=== PATIENT | female | born 1995 | race Caucasian/White ===

== ENCOUNTER → 2017-11-16 19:07 | Outpatient (CLI) | payer MEDICAID, SELFPAY ==
[2017-11-16 21:35] LABS: Chlamydia Trachomatis by PCR Negative (Negative); Neisserai gonorrhoeae by PCR Negative (Negative); Probe Check PASS; Sample Adequacy Control PASS; Specimen Processing Control PASS
[2017-11-21 13:47] LABS: HPV Reflexed? NOT INDICATED
== END ==
PROVIDERS: Visit Provider Obstetrics & Gynecology
DX: Z12.4 Encounter for screening for malignant neoplasm of cervix (principal); Z34.91 Encounter for supervision of normal pregnancy, unspecified, first trimester
CPT/HCPCS: 87086; 87088; 87491; 87591; 88175; G0145

== ENCOUNTER 2018-02-24 07:30 | Emergency (ER) | payer SELFPAY ==
[2018-02-24 07:32] VITALS: BP 111/58; PULSE 98; RESP 16; TEMP 36.5; O2SAT 99; BMI 21.7
--- NOTE | 2018-02-24 08:07 | ED.VISSUMM ---
- ER Visit Summary Date of Service: 02/24/18 Chief Complaint: Nausea, vomiting, diarrhea History of Present Illness: The patient is a 22 F who started with nausea, vomiting, and diarrhea patient states she has a queasy feeling in her stomach but no overt abdominal pain. She has had subjective fever. She does not remember when she last urinated. Mother had similar symptoms last week. Physical Examination: Vital signs are unremarkable. Patient's lying in bed in no acute distress. She does appear ill. Head neck examination is unremarkable. Heart is regular rate and rhythm. Lung sounds are clear. Abdomen is soft with mild diffuse tenderness to palpation. There is no guarding or rebound. Hypoactive bowel sounds are noted throughout. Test Results: CBC is unremarkable. Chemistry studies are significant only for potassium slightly low at 3.3. test is negative. Emergency Department Course and Treatment: Patient was given IV fluids, Zofran, and IM Bentyl. On repeat evaluation she is sleeping comfortably. She easily awakens. Nausea is improved. She will be given a p.o. challenge prior to discharge. We will discharge her with Zofran and Bentyl prescriptions and off work today and tomorrow. Treatment Plan: [] Disposition: Discharge Impression: Gastroenteritis This note was generated with [employer] dictation software. It may contain incorrect words, spelling, and punctuation that were not noted in review of the chart prior to signing ED Disposition - Plan for ED Patient: Chief Complaint: General Illness Referrals: NOT,DEFINED [NON-STAFF] -
[2018-02-24 08:23] LABS: Absolute Lymphocyte Count 2.33 X10^3/ul (0.83-4.51); Absolute Neutrophil Count 5.4 X10^3/uL (2.0-7.7); Basophil# 0.02 X10^3/uL; Basophil% 0.2 % (0-1); Eosinophil# 0.02 X10^3/uL; Eosinophils% 0.2 % (0-5); Hematocrit 40.1 % (37-47); Hemoglobin 13.4 g/dl (12.0-15.0); Lymphocyte # 2.33 X10^3/ul (4.0); Lymphocyte % 27.5 % (19-41); Mean Corp Hgb Conc 33.4 g/gl (32-36); Mean Corpuscular Hgb 29.4 pg (27.0-32.0); Mean Corpuscular Volume 87.9 fL (81-99); Monocyte# 0.64 X10^3/uL; Monocyte% 7.6 % (0-10); Neutrophil # 5.44 X10^3/uL (2.7-7.7); Neutrophil % 64.3 % (47-70); Platelet Count 257 K/mm3 (150-450); RBC Distribution Width CV 13.1 % (11.6-14.6); RBC Distribution Width SD 41.7 fl (35.1-43.9); Red Blood Count 4.56 M/mm3 (4.2-5.4); White Blood Count 8.5 K/mm3 (4.4-11.0)
[2018-02-24 08:25] LABS: POSITIVE COUNT NO; POSITIVE DIFFERENTIAL NO; POSITIVE MORPHOLOGY NO
[2018-02-24] MEDS: Ondansetron 4 MG/2 ML Vial IV (08:26)
[2018-02-24] MEDS: 0.9% Normal Saline 1,000 ML 1000 ML IV (08:26)
[2018-02-24] MEDS: Dicyclomine 20 MG/2 ML Vial IM (08:27)
[2018-02-24 08:29] VITALS: RESP 16
[2018-02-24 08:42] LABS: Anion Gap 8 (5-15); BUN 10 mg/dL (7-18); BUN/Creat Ratio 13.2 RATIO (10-20); Calcium,Total 8.9 mg/dL (8.5-10.1); Chloride 106 mmol/L (98-107); Creatinine, Serum 0.76 mg/dL (0.55-1.02); EST Glomerular Filtration Rate 99 mL/min (>60); Est Glom Filt Rate - Afr Amer 120 mL/min (>60); Estimated Creatinine Clearance 106.85 ml/min; Glucose 83 mg/dL (74-106); Potassium 3.3 mmol/L (3.5-5.1); Sodium Level 140 mmol/L (136-145)
[2018-02-24 08:52] LABS: Pregnancy, Serum, hCG Quali. NEGATIVE Negative (0-9 Nonpreg)
--- NOTE | 2018-02-24 09:08 | ED.DEP ---
ED Disposition - Plan for ED Patient: Disposition: Home or Assisted Living Chief Complaint: General Illness Instructions: ED Gastroenteritis Viral Prescriptions: Ondansetron [Zofran Odt] 4 mg PO Q8H PRN PRN #10 tablet PRN Reason: Nausea Dicyclomine HCl [Bentyl] 20 mg PO TIDAC #20 capsule Referrals: Saad,Carol Ann, DO [NON-STAFF] - As Needed
[2018-02-24 09:31] VITALS: BP 108/60; PULSE 70; RESP 16; O2SAT 98
== END 2018-02-24 09:31 | disposition home or self-care (01) ==
PROVIDERS: Emergency Provider Emergency Medicine
DX: K52.9 Noninfective gastroenteritis and colitis, unspecified (principal); Z72.0 Tobacco use
CPT/HCPCS: 80048; 84703; 85025; 96361; 96372; 96374; 99283; J7030; A4216; J2405

== ENCOUNTER 2018-05-18 17:10 | Emergency (ER) | payer SELFPAY ==
[2018-05-18 17:11] VITALS: BP 91/55; PULSE 92; RESP 18; TEMP 37.1; O2SAT 98; BMI 20.9
--- NOTE | 2018-05-18 17:27 | ED.VISSUMM ---
- ER Visit Summary Date of Service: 05/18/18 Chief Complaint: Right flank pain History of Present Illness: The patient is a 22 F history of prior kidney stone. No prior abdominal or urologic surgery. Patient states 2 weeks ago she had a UTI was treated with what she believes was Bactrim. States it improved. For the last 2 days now she is having right flank pain. Denies fever. Has had nausea and vomiting. Denies dysuria. Denies gross hematuria. Last menstrual period was about 6 weeks ago. States that her menstrual cycles often irregular. Does not believe that she is . Denies any abdominal pain or pelvic pain. No vaginal bleeding or discharge. Denies any trauma. Physical Examination: Young female planing of pain otherwise no acute distress. Vital signs are stable. She is afebrile. She does not look septic or toxic. H EENT exam unremarkable. Moist wheeze members. Neck nontender. Lungs there to auscultation bilaterally. Heart regular rhythm no murmur. Abdomen soft. Nontender. Nondistended. Normal bowel sounds. No signs of obstruction. Both the right upper and right lower quadrants are nontender. No hernias or masses. Extremities moving all 4. Neurovascular intact. Back right CVA tenderness. No signs of trauma. No redness or warmth. No discoloration. Left flank is nontender. Neurologically she is awake and alert with no focal motor deficits. Test Results: Chemistry is normal normal creatinine and gap. UA is positive for 25-50 white cells no nitrates. No RBCs. 1+ bacteria. A culture was sent primarily due this is probably early pyelonephritis, she is also had a recent UTI and had a positive test. Her serum test was positive. The labs quant was actually [phone]. I spoke to them specifically. Again the patient has no abdominal or pelvic pain or vaginal bleeding. Emergency Department Course and Treatment: Patient treated with IV morphine and Zofran for pain and nausea. Patient is doing much better after IV medications. I spoke with both her and her mom at length. She thinks she may have gotten when she was on her last antibiotic and thinks that her oral contraceptive may have failed. Treatment Plan: She will be started on Keflex 4 times a day. First dose given in ER. She is seen Dr. Mallory before for her prior pregnancies will follow up with her. Disposition: Discharge Impression: Acute right flank pain secondary to early pyelonephritis Newly diagnosed This note was generated with [employer] dictation software. It may contain incorrect words, spelling, and punctuation that were not noted in review of the chart prior to signing ED Disposition - Plan for ED Patient: Chief Complaint: Complaint Referrals: Care Physician,No Primary [Primary Care Provider] -
[2018-05-18 17:29] LABS: Mucous, Urine 0 SEEN /hpf (<or=2+); Red Blood Cells-Urine 0 SEEN /hpf (0-5)
[2018-05-18] MEDS: Ondansetron 4 MG/2 ML Vial IV (17:35)
[2018-05-18] MEDS: Morphine 4 MG/ML Syringe 6 MG IV (17:36)
[2018-05-18 17:41] LABS: Color, Urine Yellow (Yellow); Glucose, Dipstick Normal (Normal); Ketone-Dipstick Negative (Negative); Leukocyte Esterase-Dipstick 500 /ul (Negative); Nitrite-Dipstick Negative (Negative); Occult Blood-Urine 10 /ul (Negative); Protein-Dipstick 30 mg/dl (Negative); Urine Bilirubin Dipstick Negative (Negative); Urine Clarity Cloudy (Clear); Urine Urobilinogen Normal (Normal)
[2018-05-18 17:55] LABS: Anion Gap 6 (5-15); BUN 8 mg/dL (7-18); BUN/Creat Ratio 9.6 RATIO (10-20); Calcium,Total 8.8 mg/dL (8.5-10.1); Chloride 101 mmol/L (98-107); Creatinine, Serum 0.83 mg/dL (0.55-1.02); EST Glomerular Filtration Rate 89 mL/min (>60); Est Glom Filt Rate - Afr Amer 108 mL/min (>60); Estimated Creatinine Clearance 97.29 ml/min; Glucose 72 mg/dL (74-106); Potassium 3.7 mmol/L (3.5-5.1); Sodium Level 134 mmol/L (136-145)
[2018-05-18 18:00] LABS: Bacteria 1+ /hpf (None Seen); Squamous Epithelial Cells - UA 0-5 SEEN /hpf (5-10); White Blood Cells 25-50 SEEN /hpf (0-5)
[2018-05-18 18:15] LABS: Pregnancy, Serum, hCG Quali. POSITIVE Negative (0-9 Nonpreg)
--- NOTE | 2018-05-18 18:44 | DCINST.ED_ITS ---
ED Disposition - Plan for ED Patient: Disposition: Home or Assisted Living Chief Complaint: Complaint Instructions: ED Kidney Infec Female Prescriptions: Ondansetron [Zofran Odt] 4 mg PO Q8H PRN PRN #10 tab PRN Reason: Nausea Cephalexin [Keflex] 500 mg PO Q6 #40 cap Referrals: Bozena Mallory MD [STAFF PHYSICIAN] - As soon as possible Additional Instructions: Urinary tract infection probably early right kidney infection. Plenty of fluids. Rest. Tylenol for pain. The antibiotic Keflex 1 pill 4 times a day. A urine culture was sent that should return in the next 48 hours and will match up the antibiotic to make sure it is covering the bacteria causing her infection. Also as I told you you test was positive. He will need to follow-up with Dr. Bozena Mallory here for [employer] for further evaluation.
[2018-05-18] MEDS: Cephalexin 250 MG Capsule 500 MG PO (18:49)
[2018-05-18 18:51] VITALS: BP 97/71; PULSE 85; RESP 16; O2SAT 96
== END 2018-05-18 18:54 | disposition home or self-care (01) ==
PROVIDERS: Emergency Provider Emergency Medicine
DX: O23.01 Infections of kidney in pregnancy, first trimester (principal); Z3A.00 Weeks of gestation of pregnancy not specified; Z87.442 Personal history of urinary calculi; O99.331 Smoking (tobacco) complicating pregnancy, first trimester
CPT/HCPCS: 80048; 81001; 84703; 87086; 87088; 87186; 96374; 96375; 99284; A4216; J2405

== ENCOUNTER 2018-06-10 01:19 | Emergency (ER) | payer MEDICAID, SELFPAY ==
[2018-06-10 01:20] VITALS: BP 96/60; PULSE 72; RESP 20; TEMP 36.6; O2SAT 98; BMI 22.7
[2018-06-10] MEDS: traMADol 50 MG Tablet PO (01:58)
[2018-06-10 02:09] LABS: Basophil# 0.02 X10^3/uL; Basophil% 0.1 % (0-1); Eosinophil# 0.09 X10^3/uL; Eosinophils% 0.5 % (0-5); Hematocrit 36.3 % (37-47); Hemoglobin 11.7 g/dl (12.0-15.0); Lymphocyte % 8.2 % (19-41); Mean Corp Hgb Conc 32.2 g/gl (32-36); Mean Corpuscular Hgb 28.7 pg (27.0-32.0); Mean Corpuscular Volume 89.2 fL (81-99); Mean Platelet Vol. 11.2 fl (6.2-12.0); Monocyte# 1.56 X10^3/uL; Monocyte% 9.1 % (0-10); Neutrophil # 13.99 X10^3/uL (2.7-7.7); Platelet Count 235 K/mm3 (150-450); RBC Distribution Width CV 14.6 % (11.6-14.6); RBC Distribution Width SD 47.8 fl (35.1-43.9); Red Blood Count 4.07 M/mm3 (4.2-5.4); White Blood Count 17.1 K/mm3 (4.4-11.0)
[2018-06-10 02:10] LABS: Differential Indicated SCAN CRITERIA MET; POSITIVE COUNT NO; POSITIVE DIFFERENTIAL YES; POSITIVE MORPHOLOGY NO
--- NOTE | 2018-06-10 02:18 | ED.VIS.GEN ---
History of Present Illness Chief Complaint: Sore Throat Informant: Patient Onset: Days - 3 Context: Gradual Onset Timing: Continuous Quality: sore Location: entire throat Current Severity: Severe Maximum Severity: Severe Worsened by: swallowing Relieved by: nothing. taking tylenol. Associated Symptoms: subj fevers. no cough. Narrative: Saw her doctor less than 24 hours ago and had a negative rapid strep test, she states that the pain/soreness is gradually worsening and she is having trouble sleeping because of it. She denies any dyspnea. She states she is approximately 6-8 weeks . No abdominal pain, vaginal bleeding, no rashes. No confusion or neck stiffness. She states her neck does hurt in the back. Past Medical History - Allergies and Home Meds Allergies/Adverse Reactions: Allergies No Known Allergies Allergy (Verified 06/10/18 01:25) Primary Care Physician: Care Physician,No Primary [Primary Care Provider] - Past Medical History: None Smoking Status: Former smoker Review of Systems General: Reports: Fever, Malaise Eyes: Denies: Visual changes - left, Diplopia ENT: Reports: Sore throat. Denies: Bilateral ear pain Cardiovascular: Denies: Chest pain, Palpitations Respiratory: Denies: Dyspnea, Cough Gastrointestinal: Denies: Abdominal pain, Nausea, Vomiting Musculoskeletal: Reports: Neck pain. Denies: Swelling, Extremity Pain Skin: Denies: Rash, Wounds Neurological: Reports: Headache. Denies: Weakness, Parasthesia, Numbness Physical Exam Vital Signs/Narrative: Vital Signs Temp Pulse Resp BP Pulse Ox 06/10/18 01:20 97.9 F 72 20 H 96/60 98 Inital Vital Signs reviewed: Yes General: Well nourished, Well developed Head: Normocephalic, Atraumatic Eyes: Perrl, EOMI ENT: Moist mucous membranes, No rhinorrhea Neck: Supple, - - tender posteriorly, but no palpable abn LNs. tender bilat symmetric submandibular LAD. neck supple w/o meningismus. Cardiovascular: Regular rate, Regular rhythm, No murmurs Respiratory: No distress, CTA bilaterally, Chest nontender Extremities: Nontender, No edema Skin: Normal color, No rash, No Trauma Neurological: Alert, Oriented x3, Cranial nerves II-XII grossly intact, Normal Strength, Normal Sensation, Normal Gait Psychological: Normal affect Diagnostic/Tx/Re-eval Laboratory Tests 06/10/18 Range/Units 01:50 WBC 17.1 H (4.4-11.0) K/mm3 RBC 4.07 L (4.2-5.4) M/mm3 Hgb 11.7 L (12.0-15.0) g/dl Hct 36.3 L (37-47) % MCV 89.2 (81-99) fL MCH 28.7 (27.0-32.0) pg MCHC 32.2 (32-36) g/gl RDW 14.6 (11.6-14.6) % RDW Differential 47.8 H (35.1-43.9) fl Plt Count 235 (150-450) K/mm3 MPV 11.2 (6.2-12.0) fl Immature Gran % (Auto) 0.100 (0.0-0.9) % Neut % (Auto) 82.0 H (47-70) % Lymph % (Auto) 8.2 L (19-41) % Pine % (Auto) 9.1 (0-10) % Eos % (Auto) 0.5 (0-5) % Baso % (Auto) 0.1 (0-1) % Absolute Neuts (auto) 14.0 H (2.0-7.7) X10^3/uL Absolute Lymphs (auto) 1.40 (0.83-4.51) X10^3/ul Total Counted Not Reportable Differential Comment SCANNED Diff Path Review December foll Microbiology 06/10/18 01:50 Mucosa - Throat Group A Streptococcus Rapid Screen - Preliminary -- Negative - Medical Decision Making Patient was given Ultram and Decadron, her strep test is negative, culture is sent and pending. This was performed although she already had it performed at a different facility, given its dependence on the swab. CBC shows a predilection for neutrophils as opposed to lymphocytes which would be seen with mononucleosis. There were no atypical lymphocytes noted. Certainly she has a white count of 17 and bacterial causes are possible, but there is a fairly normal-appearing exam and she has no symptoms to suggest epiglottitis, retropharyngeal abscess, just odynophagia and erythema without any exudates, swelling of tonsils, or asymmetry. She has no trismus. I recommend close outpatient follow-up, returning if worse, she understands and is comfortable with this plan, as the Decadron may help quite a bit after it starts working. ED Disposition - Plan for ED Patient: Disposition: Home or Assisted Living Chief Complaint: Sore Throat Diagnosis: Acute pharyngitis Instructions: ED Pharyngitis Viral Report Pending Referrals: Anabel Sanchez [NON-STAFF] - 3-5 Days if not improving (or return to ER)
[2018-06-10 03:03] LABS: Differential Comment SCANNED
[2018-06-10 03:38] VITALS: BP 102/63; PULSE 84; O2SAT 96
[2018-06-12 15:13] LABS: Pathologist Review Reviewed
== END 2018-06-10 03:39 | disposition home or self-care (01) ==
PROVIDERS: Emergency Provider Emergency Medicine
DX: J02.9 Acute pharyngitis, unspecified (principal); Z87.891 Personal history of nicotine dependence
CPT/HCPCS: 36415; 85025; 87880; 99283

== ENCOUNTER 2018-06-11 16:48 | Emergency (ER) | payer MEDICAID, SELFPAY ==
[2018-06-11 16:48] VITALS: BP 91/59; PULSE 102; RESP 16; TEMP 38.1; O2SAT 96; BMI 21.6
[2018-06-11] MEDS: Acetaminophen 500 MG Tablet 1000 MG PO (17:30)
[2018-06-11] MEDS: Ondansetron 4 MG/2 ML Vial IV (17:30)
[2018-06-11] MEDS: 0.9% Normal Saline 1,000 ML 1000 ML IV (17:30)
[2018-06-11 17:52] LABS: Bacteria 0 SEEN /hpf (None Seen); Mucous, Urine 0 SEEN /hpf (<or=2+)
[2018-06-11 17:55] LABS: Absolute Lymphocyte Count 1.81 X10^3/ul (0.83-4.51); Absolute Neutrophil Count 11.6 X10^3/uL (2.0-7.7); Basophil# 0.01 X10^3/uL; Basophil% 0.1 % (0-1); Eosinophil# 0.03 X10^3/uL; Eosinophils% 0.2 % (0-5); Hematocrit 36.9 % (37-47); Hemoglobin 11.9 g/dl (12.0-15.0); Lymphocyte # 1.81 X10^3/ul (4.0); Mean Corp Hgb Conc 32.2 g/gl (32-36); Mean Corpuscular Hgb 28.7 pg (27.0-32.0); Mean Corpuscular Volume 88.9 fL (81-99); Mean Platelet Vol. 11.5 fl (6.2-12.0); Monocyte# 0.54 X10^3/uL; Monocyte% 3.9 % (0-10); Neutrophil # 11.56 X10^3/uL (2.7-7.7); Neutrophil % 82.7 % (47-70); Platelet Count 232 K/mm3 (150-450); RBC Distribution Width CV 14.7 % (11.6-14.6); Red Blood Count 4.15 M/mm3 (4.2-5.4)
[2018-06-11 18:03] LABS: Color, Urine Yellow (Yellow); Glucose, Dipstick Normal (Normal); Ketone-Dipstick Negative (Negative); Leukocyte Esterase-Dipstick 100 /ul (Negative); Nitrite-Dipstick Negative (Negative); Occult Blood-Urine 25 /ul (Negative); Protein-Dipstick 15 mg/dl (Negative); Urine Bilirubin Dipstick Negative (Negative); Urine Clarity Sl. Cloudy (Clear); Urine Urobilinogen Normal (Normal)
[2018-06-11 18:06] LABS: POSITIVE COUNT NO; POSITIVE DIFFERENTIAL NO; POSITIVE MORPHOLOGY NO
[2018-06-11 18:16] LABS: Red Blood Cells-Urine 0-5 SEEN /hpf (0-5); Squamous Epithelial Cells - UA 0-5 SEEN /hpf (5-10); White Blood Cells 10-25 SEEN /hpf (0-5)
[2018-06-11 18:30] LABS: AST(SGOT) 8 U/L (15-37); Alanine Aminotransfer ALT/SGPT 11 U/L (13-56); Albumin, Serum 3.3 g/dL (3.2-5.0); Alkaline Phosphatase 69 U/L (45-117); Anion Gap 9 (5-15); BUN 8 mg/dL (7-18); BUN/Creat Ratio 11.7 RATIO (10-20); Bilirubin, Direct 0.14 mg/dL (0.00-0.30); Calcium,Total 8.6 mg/dL (8.5-10.1); Chloride 100 mmol/L (98-107); Creatinine, Serum 0.68 mg/dL (0.55-1.02); EST Glomerular Filtration Rate 112 mL/min (>60); Est Glom Filt Rate - Afr Amer 135 mL/min (>60); Estimated Creatinine Clearance 119.42 ml/min; Glucose 74 mg/dL (74-106); Potassium 3.6 mmol/L (3.5-5.1); Protein, Total 7.3 g/dL (6.4-8.2); Sodium Level 135 mmol/L (136-145)
[2018-06-11] MEDS: 0.9% Normal Saline 1,000 ML 150 ML IV (18:30)
[2018-06-11 19:20] VITALS: BP 91/47; PULSE 82; RESP 17; O2SAT 95
[2018-06-11] MEDS: Ceftriaxone 1 GM/50 ML BAG IV (19:29)
[2018-06-11 20:02] VITALS: TEMP 37
--- NOTE | 2018-06-11 20:02 | ED.VISSUMM ---
- ER Visit Summary Date of Service: 06/11/18 Chief Complaint: Flank pain History of Present Illness: The patient is a 22 F treated for pyelonephritis in late April with Keflex. Patient has had URI symptoms since the . She has had multiple visits to healthcare providers. Today she has right flank pain and foul-smelling urine is concerned that her pyelonephritis has returned. Patient has had symptoms of fever but has not measured at home. Last dose of Tylenol was approximately 5 hours prior to evaluation. She is currently 8 weeks . Physical Examination: Vital signs include a blood pressure of 91/59, temperature 100.6, heart rate 102, respiratory rate 16, pulse ox 96% on room air. Patient is sitting upright in bed. She is nontoxic appearing. She has moist mucous membranes. There is no meningismus. Heart is regular rate and rhythm. Lungs sounds clear. Abdomen is soft with mild tenderness in the epigastric region. There is no guarding or rebound. Hypoactive bowel sounds are noted. She does have right CVA tenderness. Test Results: CBC was a white count of 14.0 which is actually improved when compared to labs from early yesterday morning. Hemoglobin is 11.9. Chemistry studies and LFTs normal. Urinalysis shows 10-25 white cells. Emergency Department Course and Treatment: Patient was given Tylenol, Zofran, and IV fluids. Urine culture has been sent and she is given a dose of IV Rocephin. I did review her urine culture from last month. She will be treated with a course of Augmentin at home. She already has nausea medicine at home if needed. Repeat temperature is currently 98.3 and heart rate is improved to 82. Treatment Plan: [] Disposition: Discharge Impression: 1. Pyelonephritis 2. First trimester This note was generated with [employer] dictation software. It may contain incorrect words, spelling, and punctuation that were not noted in review of the chart prior to signing ED Disposition - Plan for ED Patient: Chief Complaint: Flank Pain Referrals: Care Physician,No Primary [Primary Care Provider] -
--- NOTE | 2018-06-11 20:05 | ED.DEP ---
ED Disposition - Plan for ED Patient: Disposition: Home or Assisted Living Chief Complaint: Flank Pain Instructions: ED Kidney Infec Female Prescriptions: Amox/Clavulanate Tablet [Augmentin Tablet] 875 mg PO Q12H #20 tablet Additional Instructions: Follow-up with your OB in [place] as planned
[2018-06-11 20:10] VITALS: BP 101/45; PULSE 89; RESP 17; O2SAT 95
== END 2018-06-11 20:11 | disposition home or self-care (01) ==
PROVIDERS: Emergency Provider Emergency Medicine
DX: O23.01 Infections of kidney in pregnancy, first trimester (principal); Z3A.08 8 weeks gestation of pregnancy
CPT/HCPCS: 80048; 80076; 81001; 85025; 87077; 87086; 87088; 87186; 96361; 96365; 96375; 99285; J7030; A4216; J2405

== ENCOUNTER 2020-01-19 07:10 | Emergency (ER) | payer SELFPAY ==
[2020-01-19 07:11] VITALS: BP 138/77; PULSE 68; RESP 15; TEMP 36.7; O2SAT 99; BMI 24.2
--- NOTE | 2020-01-19 07:32 | ED.VIS.GEN ---
History of Present Illness Chief Complaint: Bite Narrative: Patient presenting for evaluation after dog bite. Patient reports that she was intoxicated yesterday evening, and somebody was walking a dog at that they reported was friendly. She went to give the dog treat, and it bit her in her right leg. Patient states that the person walking the dog told her that the dog's vaccines were up-to-date, but then he left the scene quickly and she has reason to believe that this likely is not true. Patient is up-to-date on her tetanus vaccine. Patient's pain and dog bite are in her right medial ankle and she states that she has some radiation of pain up her leg. Pain is moderate worse with ambulation. Patient denies any fevers. Patient denies any history of immunosuppression. Review of systems otherwise negative. Past Medical History - Allergies and Home Meds Allergies/Adverse Reactions: Allergies No Known Allergies Allergy (Verified 01/19/20 07:14) Primary Care Physician: Care Physician,No Primary [Primary Care Provider] - Prior records reviewed: Yes Past Medical History: None Smoking Status: Current every day smoker Alcohol: Occasional Drugs: None Review of Systems General: Denies: Chills, Fever, Sweats Eyes: Denies: Visual changes - bilaterally, Diplopia ENT: Denies: Rhinorrhea, Sore throat Cardiovascular: Denies: Chest pain, Palpitations Respiratory: Denies: Dyspnea, Cough, Dyspnea on exertion Gastrointestinal: Denies: Abdominal pain, Nausea, Vomiting, Diarrhea, Melena, Hematochezia Genitourinary: Denies: Dysuria, Hematuria, Frequency Musculoskeletal: Denies: Back pain, Extremity Pain Skin: Reports: Wounds. Denies: Rash Neurological: Denies: Headache, Weakness, Numbness Physical Exam Vital Signs/Narrative: Vital Signs Temp Pulse Resp BP Pulse Ox 01/19/20 07:11 98.1 F 68 15 138/77 H 99 Inital Vital Signs reviewed: Yes General: Well nourished, Well developed, No Acute Distress Head: Normocephalic, Atraumatic Eyes: Perrl, EOMI ENT: Moist mucous membranes, No rhinorrhea Neck: Supple, Nontender Cardiovascular: Regular rate, Regular rhythm, No murmurs Respiratory: No distress, CTA bilaterally, Chest nontender Abdomen: Soft, Nontender, Nondistended, Normal bowel sounds Back: Nontender, Normal Inspection Extremities: - - Examination of the patient's right lower extremity shows a laceration over the medial portion of the patient's lower leg just proximal to the medial malleolus. This measures about 2 cm in length, there is no active bleeding. There is tenderness to palpation in the area with very minimal surrounding erythema with no lymphangitic streaking. Normal PT pulses noted. Normal dorsiflexion plantarflexion eversion and inversion of the ankle. Skin: Normal color, No rash Neurological: Alert, Oriented x3, Cranial nerves II-XII grossly intact, Normal Strength, Normal Sensation Psychological: Normal affect, Normal Mood Diagnostic/Tx/Re-eval - Medical Decision Making Patient presented secondary to a dog bite. There does not appear to be evidence that this is currently severely infected. It was anesthetized, irrigated, and loosely approximated as noted in the procedure note. Patient tolerated this well. Patient will be prophylactically placed on Augmentin. She was recommended to follow-up with primary care in 3 days for a wound check in 7 days for suture removal. She was educated on signs and symptoms for which to return. Patient was discharged in stable condition. Patient does not have a primary care physician and was provided Dr. Vasquez from the follow-up list Procedures - Lacerations No standard instances Depth: Sub Q Shape: Linear Prep: Zachariah-Ken Laceration repair: Irrigated - Copiously irrigated and scrubbed with AlyseClerohan, Lidocaine, Wound explored - No evidence of foreign material, no evidence of violation of neurovascular structures Number of Sutures/[place]: 1 Suture Information: Ethilon, Simple, 4-0 Comment: Wound was loosely approximated with a single 4 oh simple interrupted nylon suture ED Disposition - Plan for ED Patient: Disposition: Home or Assisted Living Diagnosis: Dog bite of ankle, Laceration of right ankle Instructions: ED BITE Dog, ED Laceration All Closures Prescriptions: Amox/Clavulanate Tablet [Augmentin Tablet] 875 mg PO Q12H #14 tab Prescription Printed Referrals: Isabel Vasquez MD [STAFF PHYSICIAN] - (Follow-up with Dr. Vasquez in 3 days for wound check, and 7 days for suture removal)
[2020-01-19 07:56] VITALS: BP 129/66; PULSE 74; RESP 16; O2SAT 98
== END 2020-01-19 08:10 | disposition home or self-care (01) ==
PROVIDERS: Emergency Provider Emergency Medicine
DX: S91.011A Laceration without foreign body, right ankle, initial encounter (principal); S91.059 Open bite, unspecified ankle; W54.0XXA Bitten by dog, initial encounter; F17.200 Nicotine dependence, unspecified, uncomplicated
CPT/HCPCS: 12001; 99284

== ENCOUNTER 2021-10-03 12:53 | Inpatient (IN) | payer MEDICAID, SELFPAY ==
[2021-10-03] VITALS (23 sets, daily range): BP systolic 88–118; BP diastolic 51–78; PULSE 60–85; RESP 16; TEMP 36.6–36.8; O2SAT 88–100; BMI 18.8
[2021-10-03] MEDS: Oxytocin 30 units/NS 500 ml 30 UNITS/500 ML IV.SOLN 334 UNITS IV (13:03)
--- NOTE | 2021-10-03 13:18 | HP.PCM.OB_ITS ---
HPI - General General Date of Admission: 10/03/21 HPI Narrative NOEL PEACOCK, is a 26 F who presents by squad in active labor with vaginal bleeding and precipitously delivered. Patient has only had one visit in [place] at 32 weeks of . Patient had no drug use throughout the with cocaine. Patient delivered with clear fluid with artificial rupture of membranes vaginal delivery without complication. She appears to be 36 to 37 weeks and has a history of a term vaginal delivery previously at [place]. PFSH [facility] Medical History (Updated 10/03/21 @ 13:[address] Bozena Mallory MD) Depression with anxiety Home Medications amoxicillin-pot clavulanate 875 mg PO Q12H #14 tab 01/19/20 [Rx Last Taken Unknown] naproxen 500 mg PO BID #14 tab 01/19/20 [Rx Last Taken Unknown] Allergy/AdvReac Type Severity Reaction Status Date / Time No Known Allergies Allergy Verified 01/19/20 07:14 Family History (Updated 11/16/17 @ 16:42 by Sachi Farris) Father Diabetes Grandmother Diabetes Surgical History (Updated 06/10/18 @ 03:[address] Jose Alberto Sky MD) S/P tonsillectomy s/p ulcers removed from tonsils Social History (Updated 11/20/17 @ 22:[address] Bozena Mallory MD) Smoking Status: Current every day smoker alcohol intake: former substance use type: former substance user Date of last use: karissa and coke caffeine: Yes what type of physical activity do you participate in: none seatbelt use: sometimes do you feel safe at home: Yes additional social history: Qacrvk-Lfxhphtjw-Igqbts-Works in [employer] Patient is currently unemployed History 4 Elective abortions 2 Hx Para 2 Spontaneous abortions Hx # Term Pregnancies 2 Ectopic pregnancies Hx # Pregnancies Multiple births # of living children 2 Past Pregnancies Del. Date Name GA/Weeks Outcome Route Bth Weight Infant Gen Labor Lgth Anesthesia Del Locatn Provider FOB Unknown elective Unknown elective - November 2017 NST FHR Rate Baby A Baseline: 140 ROS Constitutional Constitutional: Reports systems reviewed and no addt'l complaints, except as documented ENT HEENT: Reports systems reviewed and no addt'l complaints, except as documented Cardiovascular Cardiovascular: Reports systems reviewed and no addt'l complaints, except as documented Respiratory/Chest Respiratory/Chest: Reports systems reviewed and no addt'l complaints, except as documented Gastrointestinal Gastrointestinal: Reports systems reviewed and no addt'l complaints, except as documented and nausea; Denies abdominal pain Genitourinary Genitourinary: Reports systems reviewed and no addt'l complaints, except as documented, contractions Details: present and frequency (regular ) and movement Details: present Musculoskeletal Musculoskeletal: Reports systems reviewed and no addt'l complaints, except as documented Integumentary Integumentary: Reports as per HPI Neurologic Neurologic: Reports systems reviewed and no addt'l complaints, except as documented Endocrine Endocrinology: Reports systems reviewed and no addt'l complaints, except as documented Physical Exam Const alert, oriented x3 and healthy appearing Constitutional Narrative: uncomfortable with contractions HEENT normocephalic and moist oral mucous membranes Head and Scalp: atraumatic Neck full ROM, no lymphadenopathy, supple and thyroid normal General: trachea midline Thyroid: thyroid normal Lymph Lymphatic: no lymphadenopathy noted Chest inspection of chest normal Resp normal respiratory effort Cardio regular rate GI normal to inspection, nondistended, normoactive bowel sounds, soft to palpation and non-tender Inspection: gravid external exam normal Bimanual Exam - Vag & Uterus: uterus non-tender Manual OB Exam: estimated gestational size appropriate, presentation cephalic, dilated, effaced and station Extremity Extremity Narrative: multiple self inflicted excoriations arms and legs General Extremity: Negative for edema Neuro deep tendon reflexes 2+ bilaterally Motor Exam: strength 5/5 throughout and clonus absent Psych mental status grossly normal Labs Labs Labs: Hct 36.9 % (37-47) L Hgb 11.9 g/dl (12.0-15.0) L C.trachomatis DNA (PCR) Negative (Negative) Assessment & Plan (1) No care in current : (2) Precipitous delivery: (3) Vaginal delivery: COMMENT: SM 37 no care girl (4) History of illicit drug use: PLAN: patient presented precipitous delivery no complications
--- NOTE | 2021-10-03 13:30 | OP.PCM_ITS ---
Assessment & Plan (1) Vaginal delivery: COMMENT: SM 37 no care girl (2) Precipitous delivery: (3) No care in current : Vaginal Delivery Operative Information Date of Procedure: 10/03/21 Pre-Operative Diagnosis: IAL Post-Operative Diagnosis: same Surgery / Procedure Performed: Spontaneous Vaginal Delivery Type of Anesthesia: None Special Medications: none Estimated Blood Loss: 200 Fluids Replaced: crystalloid Findings Description of Procedure: Patient began pushing and delivered the head in the ELIECER presentation. The head was delivered atraumatically . The anterior and posterior shoulders delivered without complication followed by the rest of the and the was placed on the maternal abdomen. Delayed cord clamping was employed for approximately 60 seconds. Cord was clamped and cut and gentle traction was applied to the cord and the placenta delivered spontaneously immediately following it was noted to be intact with three-vessel cord. The perineum and vagina were inspected and noted to have no laceration. EBL was 200. Patient and infant tolerated delivery well. Presentation: ELIECER Amniotic Membrane Rupture Type: Artificial Amniotic Fluid Description: Clear Placental Delivery Description: Spontaneous Placenta Disposition: [facility] Cord Vessel Description: 3 Vessels Cord Entanglement: None Delayed Cord Clamping: Yes Post Vaginal Delivery Medications Given After Delivery: IV Pitocin Episiotomy Description: None Laceration: None Complication Complications: None Procedures Urinary/Genital [id number]: [id number] Vaginal Delivery+ Care([facility])
--- NOTE | 2021-10-03 13:31 | PCM.DC ---
Discharge Instructions Diet Discharge Diet: No restrictions Activity Discharge Activity: Return to Normal Activity, May Not Drive (while taking narcotic pain medications.) and May Shower May resume sexual activity in: 4-6 weeks Dressing / Incision Call your doctor if your incision/area has: Continuous Slow Oozing, Sudden Increased Bleeding, Increased Pain/ Swelling, Increased Redness and Foul Smelling Discharge Follow Up Care Please Follow Up With: Bozena Mallory MD When: Call [phone] to make an appointment with your doctor in 6 weeks. If you had elevated blood pressure or 4th degree laceration, you will need to be seen in 2 weeks. Test Results: Test results from this visit will be discussed in further detail at your follow-up appointment, if applicable. Discharge Plan Admission Admit Date/Time: 10/03/21 12:53 Primary Reason for Your Visit: vaginal delivery Attending Provider: Bozena Mallory Primary Care Provider: Care Physician,Juju Primary Discharge Orders/Prescriptions Prescriptions: No Action amoxicillin-pot clavulanate 875 MG tablet 875 mg PO Q12H Qty: 14 RF: 0 naproxen 500 MG tablet 500 mg PO BID Qty: 14 RF: 0 Referrals / Follow Up: Care Physician,No Primary [Primary Care Provider] - Disposition Disposition (needs filled in before D/C Order can be placed): Home, Self Care
[2021-10-03 13:44] LABS: Red Blood Cells-Urine 0 SEEN /hpf (0-5)
[2021-10-03 13:47] LABS: Absolute Lymphocyte Count 1.75 X10^3/uL (0.83-4.51); Absolute Neutrophil Count 8.3 X10^3/uL (2.0-7.7); Basophil# 0.05 X10^3/uL; Basophil% 0.4 % (0-1); Eosinophil# 0.04 X10^3/uL; Eosinophils% 0.4 % (0-5); Hematocrit 37.5 % (37-47); Hemoglobin 12.6 g/dL (12.0-15.0); Lymphocyte # 1.75 X10^3/ul (0.83-4.51); Lymphocyte % 15.7 % (19-41); Mean Corp Hgb Conc 33.6 g/dL (32-36); Mean Corpuscular Volume 89.3 fL (81-99); Mean Platelet Vol. 12.2 fl (6.2-12.0); Monocyte# 0.87 X10^3/uL; Monocyte% 7.8 % (0-10); NRBC Flagged by Analyzer 0 % (0-5); Neutrophil # 8.25 X10^3/uL (2.7-7.7); Neutrophil % 74.3 % (47-70); Platelet Count 239 K/mm3 (150-450); RBC Distribution Width CV 13.4 % (11.6-14.6); RBC Distribution Width SD 43.6 fl (35.1-43.9); White Blood Count 11.1 K/mm3 (4.4-11.0)
[2021-10-03 13:48] LABS: Color, Urine Yellow (Yellow); Glucose, Dipstick Normal (Normal); Ketone-Dipstick 5 mg/dl (Negative); Leukocyte Esterase-Dipstick 25 /ul (Negative); Nitrite-Dipstick Negative (Negative); Occult Blood-Urine Negative /ul (Negative); Protein-Dipstick 15 mg/dl (Negative); Specific Gravity, Urine 1.015 (1.002-1.030); Urine Clarity Sl. Cloudy (Clear); Urine Urobilinogen 4 mg/dl (Normal)
[2021-10-03 13:50] LABS: Urine Bilirubin Dipstick 1 mg/dL (Negative)
[2021-10-03 13:58] LABS: Squamous Epithelial Cells - UA 0-5 SEEN /hpf (5-10); White Blood Cells 0-5 SEEN /hpf (0-5)
[2021-10-03 13:59] LABS: Bacteria RARE /hpf (None Seen); Mucous, Urine RARE /hpf (<or=2+)
[2021-10-03] MEDS: 0.9% Saline Lock 10 ML Syringe IV ×2 (14:11→23:01)
[2021-10-03] MEDS: Ondansetron 4 MG/2 ML Vial IV ×2 (14:11→23:01)
[2021-10-03 14:16] LABS: Amphetamine Urine VISTA NEGATIVE (<1000 ng/mL); Barbiturate Urine VISTA NEGATIVE (< 200 ng/mL); Benzodiazepine Urine VISTA NEGATIVE (< 200 ng/mL); Cocaine Urine VISTA POSITIVE (< 300 ng/mL); Ecstacy Urine VISTA NEGATIVE (< 500 ng/mL); Methadone Urine VISTA NEGATIVE (< 300 ng/mL); PCP Urine VISTA NEGATIVE (< 25 ng/mL); THC Urine VISTA NEGATIVE (< 50 ng/mL); Vista UDS pH Range 7
[2021-10-03] MEDS: Methylergonovine 0.2 MG/ML Ampul IM (14:20)
[2021-10-03] MEDS: Naproxen 500 MG Tablet PO ×2 (14:49→23:01)
[2021-10-03 14:54] LABS: Syphilis Antibodies Non-reactive
[2021-10-03 15:03] LABS: HIV - WCH Non-Reactive (Nonreactive)
[2021-10-03 15:31] LABS: Hepatitis B Surface Antigen Non-Reactive (Nonreactive); Hepatitis C Antibody Non-Reactive (Nonreactive); Rubella IgG Reactive (Nonreactive)
[2021-10-03 15:31] LABS: Group B Strep DNA By PCR POSITIVE (Negative); Probe Check PASS
[2021-10-03 15:36] LABS: Chlamydia Trachomatis by PCR Negative (Negative); Neisserai gonorrhoeae by PCR Negative (Negative); Probe Check PASS; Sample Adequacy Control PASS; Specimen Processing Control PASS
[2021-10-04] VITALS (11 sets, daily range): BP systolic 96–103; BP diastolic 56–67; PULSE 64–84; RESP 14–18; TEMP 36.2–36.6; O2SAT 97
[2021-10-04] MEDS: Naproxen 500 MG Tablet PO ×2 (07:42→17:28)
--- NOTE | 2021-10-04 07:48 | PCM.PN.OB ---
Subjective Subjective Patient doing well without complaints. Tolerating PO. Ambulating and voiding without difficulty. feeding well. Denies chest pain, shortness of breath, calf pain/swelling, fevers, chills, lightheadedness. Objective Data Objective Data Vital Signs: Vital Signs Temp Pulse Resp BP Pulse Ox 97.9 F 77 16 101/56 L 97 10/04/21 07:44 10/04/21 07:43 10/04/21 04:24 10/04/21 07:43 10/04/21 07:43 Oxygen Delivery Method Room Air Weight: 120 lb Body Mass Index (BMI) 18.8 Intake & Output: Intake and Output for Last 24 Hours 10/02/21 10/03/21 10/04/21 23:59 23:59 23:59 Intake Total 500 / 500 Output Total 600 / 600 Balance -100 / -100 Lab / Micro Data Result Diagrams: 10/03/21 13:10 Labs: Laboratory Results - last 24 hr 10/03/21 13:10: WBC 11.1 H, RBC 4.20, Hgb 12.6, Hct 37.5, MCV 89.3, MCH 30.0, MCHC 33.6, RDW Std Deviation 43.6, RDW Coeff of Danny 13.4, Plt Count 239, MPV 12.2 H, Immature Gran % (Auto) 1.400 H, Neut % (Auto) 74.3 H, Lymph % (Auto) 15.7 L, [place] % (Auto) 7.8, Eos % (Auto) 0.4, Baso % (Auto) 0.4, Absolute Neuts (auto) 8.3 H, Absolute Lymphs (auto) 1.75, Nucleated RBC % 0 10/03/21 13:10: Urine Color Yellow, Urine Clarity Sl. Cloudy, Urine pH 7.0, Ur Specific [place] 1.015, Urine Protein 15 H, Urine Glucose (UA) Normal, Urine Ketones 5 H, Urine Occult Blood Negative, Urine Nitrite Negative, Urine Bilirubin 1 H, Urine Urobilinogen 4 H, Ur Leukocyte Esterase 25 H, Urine RBC 0 SEEN, Urine WBC 0-5 SEEN, Ur Squamous Epith Cells 0-5 SEEN, Urine Bacteria RARE, Urine Mucus RARE 10/03/21 13:10: Syphilis Total Ab Non-reactive 10/03/21 13:10: Chlam trachomat DNA PCR Negative, N.gonorrhoeae DNA (PCR) Negative, Group B Strep DNA POSITIVE H, Specimen Comment Not Reportable 10/03/21 13:10: Blood Type A POSITIVE, Antibody Screen NEGATIVE 10/03/21 13:10: Urine Opiates Screen NEGATIVE, Urine Methadone Screen NEGATIVE, Ur Barbiturates Screen NEGATIVE, Ur Phencyclidine Scrn NEGATIVE, Ur Amphetamines Screen NEGATIVE, U Methamphetamin-MDMA NEGATIVE, U Benzodiazepines Scrn NEGATIVE, Urine Cocaine Screen POSITIVE H, U Cannabinoids Screen NEGATIVE, Ur Drug Screen Comment 10/03/21 13:10: HIV 1&2 Antibody Non-Reactive 10/03/21 14:33: Hep Bs Antigen Non-Reactive, Hepatitis C Antibody Non-Reactive, Rubella IgG Antibody Reactive Micro: Microbiology 10/03/21 13:10 Nasal Secretion SARS-CoV-2 Antigen (Rapid) - Final ROS Constitutional Constitutional: Reports systems reviewed and no addt'l complaints, except as documented Cardiovascular Cardiovascular: Reports systems reviewed and no addt'l complaints, except as documented Respiratory/Chest Respiratory/Chest: Reports systems reviewed and no addt'l complaints, except as documented Gastrointestinal Gastrointestinal: Reports systems reviewed and no addt'l complaints, except as documented Physical Exam Const alert, oriented x3 and no apparent distress HEENT Head and Scalp: atraumatic Resp normal respiratory effort GI soft to palpation and non-tender Bimanual Exam - Vag & Uterus: uterus non-tender Uterus Palpation: uterus fundus firm (below Umbilicus) Assessment & Plan (1) Vaginal delivery: COMMENT: SM 37 no care girl (2) Precipitous delivery: PLAN: s/p PPD # 1 1. routine post delivery care 2. social work for drug use and no care
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
--- NOTE | 2021-10-04 17:00 | CASEMGMT ---
Social Work Labor and Delivery Unit Call made to [facility] ([facility]) at approximately 1500, and spoke with intake dry paste supervisor Yennifer Olivares, . Referral given for substance exposed in utero, positive drugs screens at time of delivery, lack of care, non-custody of older child, and complex social situation. Case will be screened for investigation. Let Yennifer know that baby to be in hospital a minimum of 72 hours with earliest discharge Monday. Asked Yennifer to have assigned worker call this instructional writer to touch base regarding regarding referral and plan. Plan: Social work to follow and assist. Collaborate with children services for safe plan for baby. -ODALYS Gonzalez, HEAT PUMP INSTALLER
[2021-10-04] MEDS: Acetaminophen 500 MG Tablet 1000 MG PO (22:04)
[2021-10-05 01:16] VITALS: BP 104/59; PULSE 73; RESP 18; TEMP 36.6
[2021-10-05] MEDS: Naproxen 500 MG Tablet PO ×2 (01:21→12:11)
[2021-10-05] MEDS: Senna/Docusate Sodium 1 Tablet PO (06:17)
[2021-10-05] MEDS: Acetaminophen 500 MG Tablet 1000 MG PO ×2 (06:17→16:51)
--- NOTE | 2021-10-05 07:52 | PCM.PN.OB ---
Subjective Subjective Patient doing well without complaints although sleepy and would not open eyes during conversation. Tolerating PO. Ambulating and voiding without difficulty. Feeding well. Denies chest pain, shortness of breath, calf pain/swelling, fevers, chills, lightheadedness. Objective Data Objective Data Vital Signs: Vital Signs Temp Pulse Resp BP Pulse Ox 97.8 F 73 18 104/59 L 97 10/05/21 01:16 10/05/21 01:16 10/05/21 01:16 10/05/21 01:16 10/04/21 07:43 Oxygen Delivery Method Room Air Weight: 120 lb Body Mass Index (BMI) 18.8 Intake & Output: Intake and Output for Last 24 Hours 10/03/21 10/04/21 10/05/21 23:59 23:59 23:59 Intake Total 500 / 500 Output Total 600 / 600 Balance -100 / -100 Lab / Micro Data Result Diagrams: 10/03/21 13:10 Micro: Microbiology 10/03/21 13:10 Nasal Secretion SARS-CoV-2 Antigen (Rapid) - Final Physical Exam Const Orientation / Consciousness: other Other Details: answers questions appropriately, would not open eyes during conversation HEENT normocephalic Neck full ROM Resp normal respiratory effort GI soft to palpation GI Narrative: FF below U Assessment & Plan (1) Vaginal delivery: COMMENT: SWAPNIL 37 no care girl (2) Precipitous delivery: (3) No care in current : QUALIFIERS: Trimester: third trimester Qualified Code(s): O09.33 - Supervision of with insufficient care, third trimester (4) History of illicit drug use: PLAN: s/p PPD # 2 1. routine post delivery care 2. bottle feeding- support given 3. rh positive 4. rubella immune 5. SW evaluated and referrels made/see note 6. hotel status today to further monitor .
[2021-10-05 08:10] VITALS: BP 116/67; PULSE 71; PULSE 72; RESP 18; TEMP 36.9; O2SAT 96
[2021-10-05 13:53] VITALS: BP 104/56; PULSE 90; RESP 16; TEMP 36.4
[2021-10-05] MEDS: Ondansetron 8 MG Tablet PO (16:50)
--- NOTE | 2021-10-05 17:17 | NURSING ---
Mom active in baby care - feeding and changing diapers.
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
--- NOTE | 2021-10-08 14:50 | CASEMGMT ---
Social Work Labor and Delivery Unit Arranged mental health follow-up for the patient/mother of baby, as per verbal consent, at the counseling center for October 20 at 9:30 AM with Patience Felisha. Typed information for the MOB. Refer to infant's chart, which is directly linked to this delivery record for further details about social work interventions with his family since MOB's discharge at the patient. -ODALYS Gonzalez, DENTAL AIDE. *This note was generated with [employer] software. It may contain incorrect words, spelling, and punctuation that were not noted in review of the chart prior to signing*
== END 2021-10-05 18:45 | disposition home or self-care (01) | DRG 807 ==
PROVIDERS: Admitting Provider Obstetrics & Gynecology; Visit Provider Obstetrics & Gynecology
DX: O62.3 Precipitate labor (principal); Z37.0 Single live birth; O26.23 Pregnancy care for patient with recurrent pregnancy loss, third trimester; F17.210 Nicotine dependence, cigarettes, uncomplicated; Z56.0 Unemployment, unspecified; Z3A.37 37 weeks gestation of pregnancy; O99.334 Smoking (tobacco) complicating childbirth
CPT/HCPCS: 59050; 80307; 81001; 85025; 86703; 86762; 86780; 86803; 86850; 86900; 86901; 87340; 87426; 87491; 87591; 87653; 99218; A4216; G0378; J2405

== ENCOUNTER 2023-05-31 13:14 | Emergency (ER) | payer SELFPAY ==
[2023-05-31 13:15] VITALS: BP 106/64; PULSE 72; RESP 16; TEMP 35.7; O2SAT 96; BMI 24.3
--- NOTE | 2023-05-31 13:43 | EDS_ITS ---
HPI History of Present Illness HPI Narrative: Patient presents with right wrist pain that has been getting worse over the past several days. Patient states she started a new job recently. Patient states she does a lot of lifting. Patient states that her pain is worse with certain movements and with lifting. Patient describes her pain as sharp. Patient states that approximately 1 year ago she injured her wrist and a blood bank specialist told her that she may have a fracture. Patient states she never got it evaluated. Patient denies any new trauma or injury. Patient denies any paresthesias or weakness. Chief Complaint: Upper Extremity Injury Informant: patient Onset/Context/Timing Onset: Days Context: Gradual Onset Timing: Continuous Quality of Pain: Sharp Location: Right wrist Worsened by: Movement Relieved by: Rest Associated Symptoms Associated Symptoms: Negative for Parasthesia, Weakness or Loss of Funtion PFSH [facility] Medical History Depression with anxiety Kidney disease depression hemorrhage Home Medications amoxicillin 875 mg-potassium clavulanate 125 mg tablet 875 mg (0.875 x 875-125 mg) PO Q12H #14 tabs 01/19/20 [Rx Last Taken Unknown] naproxen 500 mg tablet 500 mg PO BID #14 tabs 05/31/23 [Rx Last Taken Unknown] Allergy/AdvReac Type Severity Reaction Status Date / Time No Known Allergies Allergy Verified 05/31/23 13:15 Family History Father Diabetes Grandmother Diabetes Surgical History S/P tonsillectomy s/p ulcers removed from tonsils Social History Smoking Status: Current every day smoker tobacco type: cigarettes alcohol intake: former substance use type: former substance user Date of last use: karissa and coke caffeine: Yes what type of physical activity do you participate in: none seatbelt use: sometimes do you feel safe at home: Yes additional social history: [employer]-Works in [employer] Patient is currently unemployed ROS ROS ED Constitutional Constitutional ED: Denies chills or fever(s) Eyes Eyes: Denies blurry vision or change in vision ENT ENT ED: Denies rhinorrhea or sore throat Cardiovascular Cardiovascular: Denies chest pain or palpitations Respiratory/Chest Respiratory/Chest: Denies cough or dyspnea Gastrointestinal Gastrointestinal: Denies nausea or vomiting Genitourinary Genitourinary ED: Denies dysuria or hematuria Musculoskeletal Musculoskeletal: Denies back pain or neck pain Integumentary Denies abscess or rash Neurologic Neurologic: Denies headache(s) or weakness Allergic/Immunologic Allergic/Immunologic ED: Denies mouth swelling or urticaria EXAM Physical Exam Const Vital Signs: 05/31/23 13:15 Temperature 96.3 F L Temperature Source Temporal Pulse Rate 72 Respiratory Rate 16 Blood Pressure 106/64 Blood Pressure Mean 78 Pulse Ox 96 Oxygen Delivery Method Room Air Positive well nourished and well developed General Appearance ED: well developed and NAD Neck full ROM and supple Extremity Extremity Narrative: There is tenderness over the ulnar aspect of the right wrist. There is no edema or ecchymosis. There is no bony crepitance or step-off. There is no deformity noted. Range of motion was limited in all motions of the right wrist secondary to pain. Strength is 5/5 in the radial, median, and ulnar areas. Sensation was intact to light touch in the radial, median, and ulnar areas. Radial pulses are equal bilaterally. Neuro oriented x3, CN's II-XII intact bilaterally, moves all extremities, no focal motor deficits and no sensory deficits noted Sensorium / Orientation: alert Motor Exam: strength 5/5 throughout Psych mental status grossly normal MDM MDM MDM Narrative Medical decision making narrative: Differential diagnosis includes tendinitis, sprain, contusion, and occult fracture. X-rays of the right wrist will be obtained to assess for occult fracture. Radiography Diagnostic Testing: X-rays of the right wrist were obtained. There are 3 views. On my independent interpretation, there is no acute fracture or dislocation noted. There is no soft tissue swelling noted. Radiologist also interpreted the x-rays and agrees. Treatment and Re-Evaluation Narrative: Patient was given a dose of Naprosyn here. Patient was given a cock-up splint. Patient was advised of her findings. Patient was instructed to ice and elevate the right wrist. Patient was instructed to follow-up with her primary care physician in 5 to 7 days. Patient understood and was agreeable with the plan. All questions were answered. Discharge Plan Triage Chief Complaint: Upper Extremity Injury ED Provider: Malik Cameron Dx/Rx/DC Orders Clinical Impression: Right wrist pain, Right wrist tendinitis Instructions: ED Tendonitis Prescriptions: Continued naproxen 500 MG tablet 500 mg PO BID Qty: 14 0RF No Action amoxicillin-pot clavulanate 875 MG tablet 875 mg PO Q12H Qty: 14 0RF Primary Care Provider: Care Physician,No Primary Referrals: Eliud Tai MD [Med Staff - Revising Clerk] - 5-7 Days Care Physician,No Primary [Primary Care Provider] - Disposition Disposition: Home, Self Care
[2023-05-31] MEDS: Naproxen 500 MG Tablet PO (13:54)
--- NOTE | 2023-05-31 13:55 | RAD_ITS ---
HISTORY: Injury/Pain. TECHNIQUE: XR Wrist Min 3 Views. COMPARISON: None. FINDINGS: BONES : No acute fracture identified. Small cyst of the triquetrum. JOINTS: No dislocation. Joint spaces maintained. RAD/Wrist min 3 Views IMPRESSION: No acute fracture or dislocation identified in the right wrist. Electronically Signed: Klarissa Simms MD at 14:07 EDT ,
--- NOTE | 2023-05-31 14:36 | CM.ED ---
Social Work Referral Source: case find Referral Reason: self-pay SW met with patient and introduced self and role as [facility] SW. Patient seated on hospital bed and agreeable to speak with SW. SW engaged patient in conversation regarding insurance and community resource needs as patient is listed as self pay. Patient reports starting a new job and recently enrolling in their insurance coverage. Patient receptive towards Medicaid application and instructions in case patient needs it in the future. SW also provided and reviewed [facility] resource list as well as information for [facility] [employer] and [facility]. No other needs voiced at this time; SW remains available if needs arise. Linda Guerrier SALES PROMOTION COORDINATOR, MIKA
[2023-05-31 15:24] VITALS: RESP 16; O2SAT 96
== END 2023-05-31 15:28 | disposition home or self-care (01) ==
PROVIDERS: Emergency Provider Emergency Medicine; Visit Provider Emergency Medicine
DX: M77.9 Enthesopathy, unspecified (principal); F17.210 Nicotine dependence, cigarettes, uncomplicated
CPT/HCPCS: 73110; 99282

== ENCOUNTER 2023-11-07 10:05 | Emergency (ER) | payer MEDICAID, SELFPAY ==
[2023-11-07 10:07] VITALS: BP 103/63; PULSE 89; PULSE 95; RESP 16; TEMP 36.3; O2SAT 99; BMI 22.2
--- NOTE | 2023-11-07 10:28 | ED.VIS.FEGU ---
HPI HPI - Female History of Present Illness Chief Complaint: Detail of Chief Complaint: Lower abdominal discomfort and concern for Informant: patient Narrative Narrative: Patient presents to the emergency department with complaint of lower abdominal discomfort and thinking she is . Patient states that she was in senior living and was told that recently she had an inconclusive test and then went to another senior living where they told her she was negative. Patient states a couple days ago she took a test that was positive at home. Patient describes intermittent lower abdominal discomfort. She denies urinary symptoms. She has had no fever or vomiting. Patient is G8, P2 with 3 prior miscarriages and 2 abortions. Patient states that she does not have insurance and has not seen an EXTERNAL RELATIONS DIRECTOR. PFSH PFS Medical History Depression with anxiety Kidney disease depression hemorrhage Allergy/AdvReac Type Severity Reaction Status Date / Time No Known Allergies Allergy Verified 11/07/23 10:10 Family History Father Diabetes Grandmother Diabetes Surgical History S/P tonsillectomy s/p ulcers removed from tonsils Social History Smoking Status: Current every day smoker tobacco type: cigarettes alcohol intake: former substance use type: former substance user Date of last use: karissa and coke caffeine: Yes what type of physical activity do you participate in: none seatbelt use: sometimes do you feel safe at home: Yes additional social history: [employer]-Works in [employer] Patient is currently unemployed ROS ROS ED Review of Systems ROS Unobtainable: other Constitutional Constitutional ED: Reports lethargy; Denies chills, fever(s), sweats or weight loss Eyes Eyes: Denies blurry vision, change in vision or diplopia ENT ENT ED: Denies rhinorrhea or sore throat Cardiovascular Cardiovascular: Denies chest pain, orthopnea or racing heartbeat Respiratory/Chest Respiratory/Chest: Denies cough, dyspnea, dyspnea on exertion, orthopnea or sputum Gastrointestinal Gastrointestinal: Reports abdominal pain; Denies diarrhea, nausea or vomiting Genitourinary Genitourinary ED: Denies dysuria, hematuria or urinary frequency Musculoskeletal Musculoskeletal: Denies arthralgias, back pain, myalgias or neck pain Integumentary Denies abscess, Abrasions or rash Neurologic Neurologic: Denies headache(s) or weakness Psychiatric Psychiatric: Denies anxiety, depression or suicidal thoughts Endocrine Endocrinology: Denies polydipsia, polyphagia or polyuria Hematologic/Lymphatic Hematologic/Lymphatic: Denies easy bleeding, easy bruising or lymphadenopathy Allergic/Immunologic Allergic/Immunologic ED: Denies mouth swelling, tongue swelling or urticaria EXAM Physical Exam Const Vital Signs: 11/07/23 10:07 11/07/23 10:07 11/07/23 12:18 Temperature 97.4 F L 97.4 F L Temperature Source Temporal Temporal Pulse Rate 95 89 90 Respiratory Rate 16 16 18 Blood Pressure 103/63 103/63 98/59 L Blood Pressure Mean 76 76 72 Pulse Ox 99 99 99 Oxygen Delivery Method Room Air Room Air Room Air 11/07/23 13:00 Temperature Temperature Source Pulse Rate Respiratory Rate Blood Pressure 99/67 Blood Pressure Mean 78 Pulse Ox Oxygen Delivery Method Positive well nourished and well developed General Appearance ED: well developed and NAD HEENT Reports TM's clear and moist mucous membranes normocephalic and atraumatic; Negative for trauma or tenderness Tympanic Membrane ED: Yes TM's clear Eyes PERRL and EOMs intact bilaterally General Eye ED: Negative for pale conjunctiva or scleral icterus Neck no lymphadenopathy, supple and no JVD General: Negative for tenderness Chest Wall inspection of chest normal and palpation of chest normal Chest: Negative for tenderness Resp normal respiratory effort and clear to auscultation bilaterally Effort and Inspection: Negative for respiratory distress or pain with movement Auscultation: Negative for rhonchi, wheezes or diminished lung sounds Cardio regular rate, regular rhythm, S1 normal heart sound, S2 normal heart sound and no murmurs Peripheral Pulses: pulses 2+ throughout GI normal to inspection, nondistended, normoactive bowel sounds, soft to palpation, non-distended and no masses; Negative for non-tender GI Narrative: No significant tenderness on exam. There is no rebound, rigidity, or peritoneal signs. No masses palpated. Back/Spine no CVA tenderness and no thoracic nor lumbar tenderness Extremity normal to inspection General Extremety ED: Negative for edema General Extremity: Negative for edema Neuro oriented x3, CN's II-XII intact bilaterally, no sensory deficits noted and gait normal Sensorium / Orientation: awake, alert, oriented to person, oriented to place and oriented to time Motor Exam: strength 5/5 throughout and strength abnormal Psych mental status grossly normal Skin no rashes or lesions noted and no wounds MDM MDM MDM Narrative Medical decision making narrative: Patient presented with lower abdominal discomfort and concern for . IV line established. CBC with differential count 13.1 with hemoglobin 10.8 and platelet count of 289. Urinalysis was negative for infection. Quant was 2064. Pelvic ultrasound obtained was read by radiology as gestational sac was seen within the uterus measuring 0.8 x 0.8 x 0.6 cm. There was a possible second gestational sac versus a fluid collection measuring 1.8 x 1.3 x 0.4 cm. No yolk sac or pole seen at this time. I discussed case with Dr. Dewitt who will be happy to see patient in the office she has that patient call the office. Emergency department dizzy and was called into see an acute patient and once I return patient had eloped from the emergency department and did not stay to get her results. Lab Data Attestation: I reviewed the patient's lab results. Labs: Laboratory Results - last 24 hr 11/07/23 10:40 WBC 13.1 H RBC 3.79 L Hgb 10.8 L Hct 34.9 L MCV 92.1 MCH 28.5 MCHC 30.9 L RDW Std Deviation 48.2 H RDW Coeff of Danny 14.3 Plt Count 289 MPV 11.4 Neut % (Auto) Not Reportable Absolute Neuts (auto) 9.6 H Absolute Lymphs (auto) 2.23 Total Counted 100 Neutrophils % (Manual) 72 H Band Neutrophils % 1 Lymphocytes % (Manual) 17 L Monocytes % (Manual) 10 Diff Path Review May foll Platelet Estimate ADEQUATE RBC Morphology NORM C+C HCG, Quant 2064 H Urine Color Yellow Urine Clarity Clear Urine pH 6.0 Ur Specific [place] 1.020 Urine Protein Negative Urine Glucose (UA) Normal Urine Ketones Negative Urine Occult Blood Negative Urine Nitrite Negative Urine Bilirubin Negative Urine Urobilinogen Normal Ur Leukocyte Esterase Negative Urine RBC 0-5 SEEN Urine WBC 0 SEEN Ur Squamous Epith Cells 5-10 SEEN Urine Bacteria 0 SEEN Urine Mucus 0 SEEN Radiography Diagnostic Testing: Clinical Impression(s) from Imaging Studies Obstetrics Ultrasound 11/07/23 11:27 IMPRESSION: Intrauterine gestational sac with a mean gestational age of 5 weeks and 3 days. Correlation with the hCG recommended. Electronically Signed: Shahbaz Forrester MD at 13:31 EDT , Discharge Plan Triage Chief Complaint: ED Provider: Vishnu Sanchez Dx/Rx/DC Orders Clinical Impression: Instructions: ED Primary Care Provider: Care Physician,No Primary Referrals: Care Physician,No Primary [Primary Care Provider] - Disposition Disposition: Elopement
[2023-11-07 10:47] LABS: Bacteria 0 SEEN /hpf (None Seen); Mucous, Urine 0 SEEN /hpf (<or=2+); White Blood Cells 0 SEEN /hpf (0-5)
[2023-11-07 10:48] LABS: Color, Urine Yellow (Yellow); Glucose, Dipstick Normal (Normal); Ketone-Dipstick Negative (Negative); Leukocyte Esterase-Dipstick Negative /ul (Negative); Nitrite-Dipstick Negative (Negative); Occult Blood-Urine Negative /ul (Negative); Protein-Dipstick Negative (Negative); Urine Bilirubin Dipstick Negative (Negative); Urine Clarity Clear (Clear); Urine Urobilinogen Normal (Normal)
[2023-11-07 10:58] LABS: Red Blood Cells-Urine 0-5 SEEN /hpf (0-5); Squamous Epithelial Cells - UA 5-10 SEEN /hpf (5-10)
[2023-11-07 11:04] LABS: Hematocrit 34.9 % (37-47); Hemoglobin 10.8 g/dL (12.0-15.0); Mean Corp Hgb Conc 30.9 g/dL (32-36); Mean Corpuscular Hgb 28.5 pg (27.0-32.0); Mean Corpuscular Volume 92.1 fL (81-99); Mean Platelet Vol. 11.4 fl (6.2-12.0); POSITIVE COUNT YES; POSITIVE MORPHOLOGY YES; Platelet Count 289 K/mm3 (150-450); RBC Distribution Width CV 14.3 % (11.6-14.6); RBC Distribution Width SD 48.2 fl (35.1-43.9); Red Blood Count 3.79 M/mm3 (4.2-5.4); White Blood Count 13.1 K/mm3 (4.4-11.0)
[2023-11-07 11:10] LABS: Differential Indicated MANUAL DIFF
[2023-11-07 11:21] LABS: hCG Titer Quant., Serum 2065 mIU/mL (1-3)
--- NOTE | 2023-11-07 11:27 | US_ITS ---
STUDY: FIRST TRIMESTER OBSTETRICAL ULTRASOUND REASON FOR EXAM: Female, 28 years old , pelvic pain LMP: Unknown. TECHNIQUE: Transvaginal TECHNICAL QUALITY: Adequate. PRIOR ULTRASOUND: None. FINDINGS: There is visualization of a single gestational sac in a normal intrauterine position. The mean sac diameter (MSD) measures 7.3 mm, indicating an estimated gestational age (EGA) of 5 weeks, 3 days. The gestational sac shape is within normal limits. There is no demonstrated yolk sac. The placenta is non-visualized. There is no demonstrated embryo ( pole). The estimated gestation age (EGA) by US is 5 weeks, 3days. The estimated date of delivery (FREDI) by US is July 06, 2024. The uterus measures 9.5 cm x 6.17 x 5.1 cm. Fluid collection is seen in the endometrium suggestive of either a second gestational sac versus fluid. There is no demonstrated uterine fibroid. The cervix is closed. The right ovary measures 3.2 cm x 2.7 cm x 2.8 cm. 1.7 cm x 1.7 cm x 1.2 cm solid nodule in the right ovary suggestive of a possible corpus albicans. There is no visualized right adnexal mass or complex lesion. The left ovary measures 2.5 cm x 2 cm x 2.3 cm.. There is no left ovarian cyst. There is no visualized left adnexal mass or complex lesion. There is no fluid in the cul de sac. US/Transvaginal w/Preg US IMPRESSION: Intrauterine gestational sac with a mean gestational age of 5 weeks and 3 days. Correlation with the hCG recommended. Electronically Signed: Shahbaz Forrester MD at 13:31 EDT ,
[2023-11-07 11:38] LABS: Lymphocyte 17 % (19-41); Monocyte 10 % (0-10); Neutrophil-Band 1 % (0-5); Neutrophil-Segmented 72 % (47-70); Total Cells Counted 100 (MANUAL DIFF)
[2023-11-07 11:39] LABS: Platelet Estimate ADEQUATE (ADEQ); Red Cell Morphology NORM C+C NORMAL (NORM C&C)
[2023-11-07 11:40] LABS: Absolute Neutrophil Count 9.6 X10^3/uL (2.0-7.7)
[2023-11-07 11:41] LABS: Absolute Lymphocyte Count 2.23 X10^3/uL (0.83-4.51); Pathologist Review May foll
[2023-11-07 12:18] VITALS: BP 98/59; PULSE 90; RESP 18; O2SAT 99
[2023-11-07 13:00] VITALS: BP 99/67
--- NOTE | 2023-11-07 13:51 | ED.RN ---
Pt unwilling to wait for MD re-maryann, asked to be called with results of whether she is or not. This RN educated pt on the process and that she would not be given a call with results. This RN informed pt that her MD was working a code blue and that unfortunately that takes priority. Pt doesn't care and feels that since she's wasted my whole day here that she'd rather go now. Pt provided information on patient portal and recommended f/u care with PCP. Iv removed, pt departed prior to d/c instructions and md re-jjal.
== END 2023-11-07 14:05 | disposition left against medical advice (07) ==
PROVIDERS: Emergency Provider Emergency Medicine; Visit Provider Emergency Medicine
DX: Z34.80 Encounter for supervision of other normal pregnancy, unspecified trimester (principal); F17.210 Nicotine dependence, cigarettes, uncomplicated
CPT/HCPCS: 76817; 81001; 84702; 85025; 99282; A4216

== ENCOUNTER 2025-01-30 13:20 | Emergency (ER) | payer MEDICAID, SELFPAY ==
[2025-01-30 13:21] VITALS: BP 97/76; PULSE 116; RESP 16; TEMP 36.6; O2SAT 98
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
--- NOTE | 2025-01-30 13:50 | RAD_ITS ---
PROCEDURE: FOOT MIN 3 VIEWS 01/30/2025 REASON FOR EXAM: LACERATION ?? F BODY TECHNIQUE: 4 views of the right foot. COMPARISON: None FINDINGS: Bones: No visible fracture. No suspicious bone lesion. Joints: Normal alignment. Joint spaces preserved. No arthropathic features. Soft tissues: No radiopaque foreign body. Other: RAD/Foot min 3 Views IMPRESSION: No radiopaque foreign body is seen. Reading Location: [place] [id number]
[2025-01-30] MEDS: Cephalexin 250 MG Capsule 500 MG PO (13:58)
[2025-01-30] MEDS: Smz/Tmp Ds Tablet 1 TABLET PO (13:58)
[2025-01-30] MEDS: Diphth,Pertuss(Acell),Tet Vac 0.5 ML Vial IM (14:15)
[2025-01-30 15:01] VITALS: BP 110/59
[2025-01-30 15:25] VITALS: BP 100/59; PULSE 79; RESP 16; TEMP 36.7; O2SAT 100
== END 2025-01-30 15:26 | disposition home or self-care (01) ==
PROVIDERS: Emergency Provider Emergency Medicine; Referring Provider Emergency Medicine; Visit Provider Emergency Medicine
DX: S91.311A Laceration without foreign body, right foot, initial encounter (principal); L08.9 Local infection of the skin and subcutaneous tissue, unspecified; W26.8XXA Contact with other sharp object(s), not elsewhere classified, initial encounter; Y93.16 Activity, rowing, canoeing, kayaking, rafting and tubing; Y92.828 Other wilderness area as the place of occurrence of the external cause; Z23 Encounter for immunization; F17.210 Nicotine dependence, cigarettes, uncomplicated; Z79.899 Other long term (current) drug therapy
CPT/HCPCS: 73630; 90715; 99282